=== PATIENT | female | born 1980 | race Caucasian/White ===

== ENCOUNTER 2016-11-24 20:41 | Emergency (ER) | payer OTHER ==
[~2016-11-24] VITALS: Ht 175.3 cm; Wt 117.0 kg
[2016-11-24 21:09] VITALS: BP 157/92
[2016-11-24 21:42] LABS: Urine Bilirubin Negative (Negative); Urine Blood Negative /uL (Negative); Urine Color Yellow (Yellow); Urine Glucose Normal (Normal); Urine Ketone TRACE (Negative); Urine Nitrite Negative (Negative); Urine RBC 2 /hpf (0 - 4); Urine Squamous Epithelial Cell FEW /hpf (<5); Urine Urobilinogen Normal (Negative)
[2016-11-24] MEDS ORDERED: KETOROLAC TROMETH 60MG/2ML VIAL IM ONE (23:45)
== END 2016-11-24 23:55 | disposition home or self-care (01) ==
LOC: ER 20:47
DX: M54.31 Sciatica, right side (principal)
CPT/HCPCS: 81001; 81025; 96372; 99284; J1885